=== PATIENT | female | born 1950 ===

== ENCOUNTER 2017-10-23 08:33 | Outpatient (CLI) | payer MEDICARE, OTHER ==
--- NOTE | 2017-10-23 19:40 | XRay Report ---
FINAL REPORT PROCEDURE: XR KNEE BILAT 4+V TECHNIQUE: Bilateral knee radiographs, 4 or more views, including AP, lateral, sunrise and oblique views. HISTORY: Bilateral knee pain. COMPARISON: No prior studies are available for comparison. FINDINGS: Right Fracture (s) and/or Dislocation(s): None . Alignment: Slight lateral tibial translation in relation to the distal femur. Slight genu valgum. Joint space(s): Patella Foss. Small joint effusion. Severe medial compartment narrowing and osteophytes. Slight lateral and patellofemoral compartment narrowing and osteophytes. Tibial eminence spurring. Soft tissues: Normal. Bone mineralization: Mild osteopenia. Foreign bodies: None. Left Fracture (s) and/or Dislocation(s): None . Alignment: Slight lateral tibial translation in relation to the distal femur. Slight genu valgum. Joint space(s): Slight patella Shonna. Severe medial compartment narrowing and osteophytes and compartment eburnation. Mild lateral and patellofemoral compartment narrowing and osteophytes. Tibial eminence spurring. Soft tissues: 18 x 12 mm suprapatellar amorphous calcification. Bone mineralization: Mild osteopenia. Foreign bodies: None. IMPRESSION: Degenerative changes of the bilateral knees, bilaterally most severe in the medial compartment. Osteopenia. Amorphous calcification in the left suprapatellar region, may be related to prior trauma, consider further evaluation including MRI if there is continued clinical concern including concern for calcified synovial/soft tissue process and if patient has no contraindication MRI.
== END 2017-10-23 08:34 | disposition home or self-care (01) ==
LOC: SPVIMAG 08:33
PROVIDERS: ATTEND Orthopaedic Surgery Sports Medicine
DX: M17.0 Bilateral primary osteoarthritis of knee (principal); M21.062 Valgus deformity, not elsewhere classified, left knee; M21.061 Valgus deformity, not elsewhere classified, right knee; M85.861 Other specified disorders of bone density and structure, right lower leg; M85.862 Other specified disorders of bone density and structure, left lower leg